=== PATIENT | female | born 1935 | race Asian ===

== ENCOUNTER 2018-02-15 21:35 | Emergency (ER) | payer OTHER ==
[2018-02-15] MEDS ORDERED: SODIUM CHLORIDE 1,000 ML IV SCH (21:45)
--- NOTE | 2018-02-15 21:57 | PDOC ---
Attending Attestation - Medical Decision Making 02/15/18 Patient is a full code status as per son and . 10:00pm Call placed to [facility] for transfer. Case discussed with Dr. Ortiz from the stroke team. Case was accepted. 10:30pm Call from Dr. Alvarez [facility] ER attending, case was discussed and accepted. 10:30pm Call placed to Dr. Cordova, neurologist [employer], case was discussed. 02/15/18 23:40 Patient left facility via [facility]. <Letty Pratt - Last Filed: 02/15/18 23:40> - Resident Resident Name: Dusty Bowden - ED Attending Attestation I have performed the following: I have examined & evaluated the patient, The case was reviewed & discussed with the resident, I agree w/resident's findings & plan, Exceptions are as noted - HPI HPI: 02/15/18 23:04 The patient is a 82 year old female, with a significant past medical history of Parkinsons Disease, who presents to the emergency department s/p seizure via EMS unresponsive. As per EMS, her last known normal was 21:45. She was sitting watching television when she began to have full body convulsions. EMS reported to the scene in 10 min and she was still conversing. She was given 5mg of IM Versed and stopped convulsing. En route she was unresponsive, blood pressure of 90/62, heart rate of 120, and given fluids. EMS reports she was unresponsive to any verbal stimuli, only moaning, and defecated on herself en route. Upon arrival the patient was not convulsing and was unresponsive. While in the ED, she withdraws from painful stimuli on the LLE and does not respond to any painful stimuli on the bilateral UE and RLE. CTh with While in the ED, the patient was given 10mg of Etomidate and 50mg Rocuronium at 10:15pm. The patient was intubated at 10:21pm. Patient is a full code status. At baseline, the patient is alert and oriented to person and ambulates on her own. Allergies: NKA Past surgical history: None reported. Social history: Nonsmoker. Denies EtOH use and recreational drug use. Primary Care Physician: Dr. Cardenas - Physicial Exam PE: 02/15/18 23:33 GENERAL: unresponsive HEAD: No signs of trauma EYES: PERRLA 3->2, pupils midline, sclera clear ENT: Moist mucosa NECK: supple LUNGS: Breath sounds equal, clear to auscultation bilaterally. No wheezes, and no crackles HEART: Regular rate and rhythm, normal S1 and S2, no murmurs, rubs or gallops ABDOMEN: Soft, nontender, normoactive bowel sounds. No guarding, no rebound. No masses EXTREMITIES: WWP, 2+ peripheral pulses NEUROLOGICAL: aphasic, LLE withdraws to pain, flaccid RUE and RLE. SKIN: Warm, Dry, normal turgor, no rashes or lesions noted. - Critical Care Time Total Critical Care Time: 90 Critical Care Statement: The care of this patient involved high complexity decision making to prevent further life threatening deterioration of the patient 's condition and/or to evaluate & treat vital organ system(s) failure or risk of failure. - Medical Decision Making 02/15/18 23:36 82yo F hx parkinsons disease presents to the ED with seizure followed by unresponsiveness post versed. Code fisher activated. +L frontal hemorrhagic bleed with no evidence of edema/herniation. Pt intubated via DL with 7.0 tube with no complications. PT accepted for transfer by Dr. Rouse (neuro at [facility]) and Dr. Alvarez ([facility] ED). Fentanyl initiated for sedation. BP elevated to 160s, HR 99, pt given labetalol 10mg IV push prior to transfer. <Misael Smith - Last Filed: 02/15/18 23:55> Heart Score/ECG Review #1 02/15/18 23:39 Sinus rhythm, rate 80 to. Normal axis.+ PVCs and PACs. Lateral ST depressions, no sig NIYA <Misael Smith - Last Filed: 02/15/18 23:55> Attestations - Attestations 02/15/18 22:46 Documentation prepared by Letty Pratt, acting as medical physiologist for Misael Smith MD. <Letty Pratt - Last Filed: 02/15/18 23:40> Intubation - Intubation Reason for Intubation: Airway Protection Intubation Method: orotracheal Blade used: Mac Tube Size (cm): 7.0 Tube position @ lip (cm): 18 Tube position confirmed by: Direct visualization, Chest x-ray, Breath sounds Breath Sounds after Intubation: equal Post Intubation Xray: Yes <Misael Smith - Last Filed: 02/15/18 23:55>
[2018-02-15 22:01] LABS: EOS % 1.3 % (0-4.5); HEMATOCRIT 40.2 % (32.4-45.2); HEMOGLOBIN 13.3 GM/dL (10.7-15.3); LYMPH % 11.1 % (8-40); MCH 30.4 pg (25.7-33.7); MEAN PLT VOLUME 8.1 fl (7.5-11.1); MONO % 8.6 % (3.8-10.2); PLATELET COUNT 467 K/MM3 (134-434); RBC 4.37 M/mm3 (3.60-5.2); RDW 15.2 % (11.6-15.6); WHITE BLOOD COUNT 6.3 K/mm3 (4.0-10.0)
[2018-02-15] MEDS ORDERED: RAPID SEQUENCE INTUBATION KIT NR ONE (22:10)
[2018-02-15 22:20] LABS: INR 1.04 (0.83-1.09); PROTHROMBIN TIME (PATIENT) 11.8 SEC (9.7-13.0)
[2018-02-15] MEDS ORDERED: PHENTOLAMINE MESYLATE 5 MG/2 ML VIAL IVPUSH ONE (22:28)
[2018-02-15] MEDS ORDERED: FENTANYL INJECTION 500 MCG in DEXTROSE 5%-WATER - 90 ML IVPB SCH (22:30)
[2018-02-15 22:38] VITALS: TEMP 97.9; BMI 21.5
--- NOTE | 2018-02-15 22:48 | PDOC ---
History of Present Illness - General Stated Complaint: POSSIBLE STROKE Time Seen by Provider: 02/15/18 21:38 History Source: Family Exam Limitations: No Limitations - History of Present Illness Initial Comments: 02/15/18 22:48 82 yo female pmh of Parkinson presents to the ED via EMS only responsive to pain on the left leg and witnessed by son full body convulsion at 21: 49 while watching TV. Pt received 5mg of IM Versed by EMS and stopped convulsing. En route she was unresponsive, blood pressure of 90/62, heart rate of 120, and given fluids. In the ED, she responds to painful stimuli on the LLE. NIH Stroke Scale - Last Known Well Date/Time & Onset Date Last Known Well: 02/15/18 Time Last Known Well: 21:49 - Initial Evaluation Level of consciousness: Not alert, requires repeat stimulation to attend Ask patient the month and their age: Both incorrect Ask patient to open & close eyes; make fist and let go: Both incorrect Best gaze (horizontal eye movement): Forced deviation Visual field testing: Bilateral hemianopia (blind including cortical blindness) Facial paresis (Show teeth/raise eyebrows/close eyes tight): Complete paralysis of one or both sides (Upper and lower face) Motor Function: Left Arm: No effort against gravity Motor Function: Right Arm: No movement Motor Function: Left Leg: Some effort against gravity Motor Function: Right Leg: No movement Limb Ataxia: Untestable (Joint fused or limb amputated), explain: Sensory(Use pinprick test arms,legs,trunk,face/side to side): Severe to total sensory loss Best language (Describe picture, name items, read sentences): Mute Dysarthria (read several words): Near unintelligible or unable to speak Extinction and Inattention: Profound joe-inattention or extinction to more than one modality - Total Score NIH Stroke Scale Score: 36 Past History - Past Medical History Allergies/Adverse Reactions: Allergies Allergy/AdvReac Type Severity Reaction Status Date / Time No Allergy Information Allergy Verified 02/15/18 22:38 Available Home Medications: Ambulatory Orders Unobtainable 02/15/18 COPD: (unable to obtain) - Suicide/Smoking/Psychosocial Hx Smoking History: Unknown if ever smoked Substance Use Type: None Review of Systems - Review of Systems Able to Perform ROS?: No (unreponsive) *Physical Exam - Vital Signs Last Vital Signs Temp Pulse Resp BP Pulse Ox 103 H 14 106/70 96 02/15/18 21:57 02/15/18 21:57 02/15/18 21:57 02/15/18 22:03 - Physical Exam General Appearance: Yes: Apparent Distress, Other (comatose) HEENT: positive: BAKARI, Other (pupils reactive bilaterally) Neck: positive: Tender Respiratory/Chest: positive: Lungs Clear Cardiovascular: positive: Regular Rhythm, S1, S2, Tachycardia. negative: Edema , JVD, Murmur Gastrointestinal/Abdominal: positive: Normal Bowel Sounds Integumentary: positive: Normal Color Neurologic: negative: Alert (responds only to pain on left lower leg ), Facial Droop Procedures - Intubation Intubation Method: orotracheal Blade used: Mac Tube Size (Fr): 7.0 Medications: Etomidate (10mg), Rocuronium (50mg) Tube position @ lip (cm): 18 Tube position confirmed by: Direct visualization, CO2 detector, Chest x-ray, Breath sounds Breath Sounds after Intubation: equal Intubation Complications: no complications Post Intubation Xray: Yes ED Treatment Course - LABORATORY CBC & Chemistry Diagram: 02/15/18 21:56 02/15/18 21:56 - ADDITIONAL ORDERS Additional order review: Laboratory Results 02/15/18 21:56 PT with INR 11.80 INR 1.04 02/15/18 21:56 RBC 4.37 MCV 92.0 MCHC 33.0 RDW 15.2 MPV 8.1 Neutrophils % 78.0 Lymphocytes % 11.1 Monocytes % 8.6 Eosinophils % 1.3 Basophils % 1.0 - RADIOLOGY Radiology Studies Ordered: Category Date Time Status CHEST X-RAY PORTABLE* [RAD] Stat Radiology 02/15/18 22:28 Ordered Medical Decision Making - Medical Decision Making 02/15/18 22:40 82 yo female pmh of Parkinson presents to the ED via EMS only responsive to pain on the left leg and witnessed by son full body convulsion at 21: 49. GCS [address] shows cerebral bleed Patient intubated 10:15 pm etom (10mg) 10:16 agnieszka (50mg). Tube size 7.0, Mac blade 4, cords visualized and tube seen going through cords . Bilateral breath sounds noted and tube confirmed with chest x ray and cap. Transfering intubated patient to [facility] *DC/Admit/Observation/Transfer Diagnosis at time of Disposition: Cerebral hemorrhage - Discharge Dispostion Disposition: TRANSFER ACUTE CARE/OTHER HOSP Condition at time of disposition: Stable Decision to Admit order: No - Referrals - Patient Instructions - Post Discharge Activity
[2018-02-15] MEDS ORDERED: levETIRAcetam 500 MG/5 ML INJECTION VIAL IVPB ONE ×2 (22:56→23:06)
[2018-02-15] MEDS ORDERED: ETOMIDATE 40 MG/20 ML VIAL IVPUSH ONE (23:01)
[2018-02-15] MEDS ORDERED: ROCURONIUM BROMIDE 50 MG/5 ML VIAL IVPUSH ONE (23:02)
[2018-02-15] MEDS ORDERED: LABETALOL HCL 5 MG/1 ML (100MG/20 ML VIAL) IVPUSH ONE (23:14)
[2018-02-15] MEDS ORDERED: LABETALOL HCL 5 MG/1 ML (200MG/40ML VIAL) IVPB ONE (23:19)
[2018-02-15 23:23] LABS: ALBUMIN 3.4 g/dl (3.4-5.0); ANION GAP 12 MMOL/L (8-16); BILIRUBIN,TOTAL 0.7 mg/dL (0.2-1); BLOOD UREA NITROGEN 26 mg/dL (7-18); CALCIUM 8.7 mg/dL (8.5-10.1); CHLORIDE 106 mmol/L (98-107); CHOLESTEROL 220 mg/dL (50-200); CO2 24 mmol/L (21-32); GLUCOSE,RANDOM 118 mg/dL (74-106); POTASSIUM 4.2 mmol/L (3.5-5.1); SGOT/AST 18 U/L (15-37); SGPT/ALT 8 U/L (13-61); SODIUM 142 mmol/L (136-145); TOT PROT 7.3 g/dl (6.4-8.2); TRIGLYCERIDES 107 mg/dL (0-150)
[2018-02-15 23:24] LABS: ALK PHOS 82 U/L (45-117); HDL CHOLESTEROL 68 mg/dL (40-60)
[2018-02-15 23:42] VITALS: BP 183/115; PULSE 97
--- NOTE | 2018-02-18 15:39 | EKG ---
Test Reason : Blood Pressure : / mmHG Vent. Rate : 082 BPM Atrial Rate : 082 BPM P-R Int : 176 ms QRS Dur : 084 ms QT Int : 442 ms P-R-T Axes : 072 053 -72 degrees QTc Int : 516 ms SINUS RHYTHM WITH OCCASIONAL PREMATURE VENTRICULAR COMPLEXES AND PREMATURE ATRIAL COMPLEXES PROLONGED QT ABNORMAL ECG NO PREVIOUS ECGS AVAILABLE Confirmed by MD West Daniel ([id number]) on 02/18/2018 3:39:35 PM Referred By: Confirmed By:Peter eWst MD
== END 2018-02-15 23:42 | disposition short-term general hospital (02) ==
LOC: JER 21:35
PROC: 0BH17EZ Insertion of Endotracheal Airway into Trachea, Via Natural or Artificial Opening (ICD-10-PCS; principal; 2018-02-15)
PROC: 3E033GC Introduction of Other Therapeutic Substance into Peripheral Vein, Percutaneous Approach (ICD-10-PCS; 2018-02-15)
PROC: 3E033GC Introduction of Other Therapeutic Substance into Peripheral Vein, Percutaneous Approach (ICD-10-PCS; 2018-02-15)
PROC: 3E033GC Introduction of Other Therapeutic Substance into Peripheral Vein, Percutaneous Approach (ICD-10-PCS; 2018-02-15)
PROC: 3E033GC Introduction of Other Therapeutic Substance into Peripheral Vein, Percutaneous Approach (ICD-10-PCS; 2018-02-15)
DX: I61.9 Nontraumatic intracerebral hemorrhage, unspecified (principal); G20 Parkinson's disease; R55 Syncope and collapse
CPT/HCPCS: 36415; 70450-TC; 71045-TC-FY; 80053; 82465; 82550; 83718; 83721; 84478; 84484; 85025; 85610; 86850; 86900; 86901; 93005; 93010; 99284-25; J7030